=== PATIENT | female | born 1965 | race Caucasian/White ===

== ENCOUNTER 2020-12-11 12:52 | Observation (INO) | payer BC ==
[~2020-12-11] VITALS: Ht 172.7 cm; Wt 83.9 kg
[2020-12-11] VITALS (7 sets, daily range): BP systolic 107–130; BP diastolic 70–98
--- NOTE | 2020-12-11 13:01 | NUR ---
ARRIVAL PT ARRIVED TO ED WITH C/O EPISODE OF VOMITTING AND DIZZINESS AND RACING HEART SINCE. BEDSIDE MONITORS APPLIED. VITAL SIGNS STABLE. RT CALLED FOR EKG. BED IN LOW LOCKED POSITION.
--- NOTE | 2020-12-11 13:11 | ER.PDOC ---
General Chief Complaint: Requesting Medical Care Stated Complaint: NAUSEA, THROWING UP, DIZZINESS RISHI VIRK MD Dec 11, 2020 13:11
[2020-12-11] MEDS ORDERED: NS 1000ML 1,000 ML ONE (13:23)
[2020-12-11] MEDS ORDERED: CARDIZEM IV STA (13:24)
--- NOTE | 2020-12-11 13:24 | PCM.EKG ---
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
[2020-12-11] MEDS ORDERED: NS 1000ML 1,000 ML IV STA (13:27)
[2020-12-11] MEDS ORDERED: CARDIZEM IV ONE (13:28)
[2020-12-11] MEDS ORDERED: CARDIZEM 125 MG in NS 100ML 100 ML IV SCH (13:30)
[2020-12-11] MEDS ORDERED: ZOFRAN ONE (13:30)
[2020-12-11 13:32] LABS: BASOPHIL % 0.3 % (0.0-0.2); EOSINOPHIL # 0.1 10^3/uL (0.0-0.2); EOSINOPHIL % 1.3 % (0.0-5.0); LYMPHOCYTES # 1.72 10^3/uL1 (1.0-4.8); LYMPHOCYTES % 19.8 % (24.0-44.0); MEAN CORP HGB 29.4 pg (26-34); MONOCYTES # 0.4 10^3/uL (0.3-0.8); NEUTROPHIL # 6.5 10^3/uL (1.8-7.7); NEUTROPHILS % 74.1 % (41.0-85.0); PLATELET COUNT 334 10^3/uL (150-400); RED CELL DISTRIBUTION WIDTH 11.9 % (11.5-14.5)
[2020-12-11] MEDS ORDERED: ZOFRAN IV STA (13:33)
[2020-12-11 14:05] LABS: ALANINE AMINOTRANSFERASE(ML) 29 U/L (12-78); ALKALINE PHOSPHATASE 76 U/L (50-136); ASPARTATE AMINO TRANSFERASE 28 U/L (0-35); CARBON DIOXIDE 27.9 mmol/L (20.0-32); GLUCOSE 110 mg/dL (70-110)
--- NOTE | 2020-12-11 14:06 | DIREP ---
PROCEDURE:CHEST 1 VIEW COMPARISON:None. INDICATIONS:cp FINDINGS: LUNGS/PLEURA:Questionable left infrahilar infiltrate versus artifact of cardiac silhouette. No other consolidation or pleural effusion. VASCULATURE:Normal. Unremarkable pulmonary vasculature. CARDIAC:Normal. No cardiac silhouette abnormality or cardiomegaly. MEDIASTINUM:Normal. No visible mass or adenopathy. BONES:Normal. No fracture or visible bony lesion. OTHER:Negative. CONCLUSION:Questionable left infrahilar infiltrate versus artifact of cardiac silhouette. No other consolidation or pleural effusion. Dictated by: Navjot Hermosillo MD on 12/11/2020 at 02:03 PM
--- NOTE | 2020-12-11 14:25 | NUR ---
DR ASHWINI VIRK SPOKE WITH DR OLGUIN WHO ACCEPTED PT TO [facility] WITH TELE.
--- NOTE | 2020-12-11 17:20 | PCM.EKG ---
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
[2020-12-11] MEDS ORDERED: LOPRESSER IVP STA (17:54)
[2020-12-11] MEDS: TOPROL XL PO SCH (18:06)
--- NOTE | 2020-12-11 18:09 | PCM.HP ---
History of Present Illness Hx of Present Illness 55-year-old female with past medical history for hyperlipidemia otherwise healthy who presents to ER due to acute onset of dizziness, nausea, vomiting. Patient states that this morning patient started to feel not herself, started to notice some dizziness, chest pain, nausea, vomiting also noted some palpation of the heart. Patient had two episodes of nausea and vomiting. Was concerned that patient possibly had Covid so came to the ER for Covid testing. In the ER patient was found to have an EKG showing A. fib RVR. Patient was given diltiazem in the ER which helped rate control. However on exam patient's heart rate was starting to go back up into the 140 A. fib. Patient otherwise stable feeling fine. Noting no dizziness or chest pain at the time. Patient did note some urinary frequency and has a history of hyperlipidemia and UTIs but otherwise no other medical history. Past medical history: Hyperlipidemia, history of UTIs Surgical history: No surgical history Family history: No family history of heart disease Social: Patient denies tobacco, illicit drug use. Patient does say that she does drink a glass of wine or beer almost every other night. Allergies no known drug allergies. Review of Systems Constitutional: No: Fever, Chills, Sweats Respiratory: No: Cough, Dry, Shortness of breath Cardiovascular: Chest Pain, Palpitations Gastrointestinal: Nausea, Vomiting Genitourinary: No Dysuria; Frequency; No Hematuria Skin: No: Rash, Lesions, Jaundice Neurological: No: Weakness, Numbness Allergies: Coded Allergies: No Known Allergies (Unverified , 12/11/20) No Active Prescriptions or Reported Meds VTE VTE Risk Total Score: 0 VTE Risk Score VTE Risk: Score 0-1 = Low Risk (Aggressive mobilization; early ambulation; no VTE prophylaxis required) Score 2: Moderate Risk (Intermittent/Pneumatic Compression Device OR Lovenox/Heparin/Coumadin) Score 3-4: High Risk (Intermittent/Pneumatic Compression Device AND Lovenox/Heparin/Coumadin) Score > or =5: Highest Risk (Intermittent/Pneumatic Compression Device AND Lovenox/Heparin/Coumadin) VTE VTE Present on Admission: No Currently receiving anticoagul: No VTE Risk Total Score: 0 Exam Vital Signs Vital Signs Date Time Temp Pulse Resp B/P (MAP) Pulse Ox O2 Delivery O2 Flow Rate FiO2 12/11/20 15:53 72 Room Air 12/11/20 15:44 97.7 20 100 12/11/20 15:16 128/76 (93) General Appearance: Alert, Oriented X3, Cooperative, No acute distress HEENT: Atraumatic, PERRLA, EOMI Respiratory: Clear to auscultation Cardiovascular: Normal S1, Normal S2, Other (Tachycardia with irregular irregular rhythm) Abdominal: Normal bowel sounds, Soft, No tenderness Extremities: No clubbing, No cyanosis, No edema Skin: No rash, No breakdown, No lesions Neuro: Normal gait, Normal speech, Strength at 5/5 X4 ext, Normal tone Psych/Mental Status: Mental status NL, Mood NL Assessment/Plan Assessment/Plan Assessment/Plan 55-year-old female with past medical history for hyperlipidemia otherwise he althy who presents with acute onset A. fib with RVR. A. fib Ordered metoprolol 2.5 mg IV for acute rate control We will start patient on 50 mg p.o. metoprolol for chronic rate control A. fib Patient's Jas vas score is one with the only 1 point being female We will hold off on any anticoagulation will treat with aspirin at this time Consulted cardiology, appreciate their recommendations and evaluation Ordered echo follow-up with echo results TSH normal, ordered cholesterol panel Patient also has history of urinary frequency near frequent UTIs Ordered UA and urine culture will follow up Disposition: Patient has new onset A. fib RVR but is stable, will treat and monitor. Follow-up cardiology and their recommendations. If patient has normal echo and rate and rhythm controlled with p.o. meds will plan to discharge tomorrow. FRANKLYN VO MD Dec 11, 2020 18:09
[2020-12-11 20:14] LABS: BILIRUBIN,URINE NEGATIVE (NEGATIVE); UA COLOR YELLOW (YELLOW)
[2020-12-11 20:15] LABS: UROBILINOGEN,URINE NEGATIVE (NEGATIVE)
[2020-12-11 20:45] LABS: YEAST,URINE RARE
--- NOTE | 2020-12-11 21:29 | PCM.EKG ---
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
[2020-12-12 05:02] VITALS: BP 108/68
[2020-12-12 05:47] LABS: BASOPHIL % 0.5 % (0.0-0.2); EOSINOPHIL # 0.3 10^3/uL (0.0-0.2); EOSINOPHIL % 3.7 % (0.0-5.0); LYMPHOCYTES # 2.46 10^3/uL1 (1.0-4.8); LYMPHOCYTES % 32.6 % (24.0-44.0); MEAN CORP HGB 30.3 pg (26-34); MONOCYTES # 0.6 10^3/uL (0.3-0.8); NEUTROPHIL # 4.1 10^3/uL (1.8-7.7); NEUTROPHILS % 54.7 % (41.0-85.0); PLATELET COUNT 305 10^3/uL (150-400); RED CELL DISTRIBUTION WIDTH 12.2 % (11.5-14.5)
[2020-12-12 05:58] LABS: CALCIUM 8.7 mg/dL (8.4-10.5); CARBON DIOXIDE 25.4 mmol/L (20.0-32)
[2020-12-12 08:07] VITALS: BP 105/52
[2020-12-12] MEDS ORDERED: ASPIRIN ONE (08:40)
[2020-12-12] MEDS: TOPROL XL PO SCH (08:42)
[2020-12-12] MEDS ORDERED: ASPIRIN EC PO SCH (09:00)
[2020-12-12 11:46] VITALS: BP 106/61
--- NOTE | 2020-12-12 13:55 | NUR ---
POC UPDATE: CARDIOLOGY CONSULT WITH DR MERCHANT
--- NOTE | 2020-12-12 16:24 | PCM.ECHO ---
APPROVED REPORT EXAM: Comprehensive 2D, Doppler, and color-flow Echocardiogram. Patient Location: IN-PATIENT Rhythm: Atrial Fibrillation Indications Atrial Fibrillation Chest Pain New onset AFIB. 2D Dimensions LVOT Diameter 2.23 (1.8-2.4cm) LVEF(%) 55.13 (>50%) M-Mode Dimensions RVDd 1.35 (2.1-3.2cm) Left Atrium(MM) 3.55 (2.5-4.0cm) IVSd 0.75 (0.7-1.1cm) Aortic Root 2.75 (2.2-3.7cm) LVDd 4.65 (4.0-5.6cm) Aortic Cusp Exc 1.60 (1.5-2.0cm) PWd 0.70 (0.7-1.1cm) MV EPSS 0.96 (<0.5cm) IVSs 1.10 cm FS (%) 24.05 % LVDs 3.50 (2.0-3.8cm) ESV(Teich) 52.49 ml PWs 0.70 cm LVEF(%) 47.87 (>50%) Volumes Biplane 2D LV Volumes Biplane 2D LA Volumes LVEDv A4C 72.03 mL LA ESV Index LVESv A4C 32.32 mL Aortic Valve AoV Peak Jeff. 1.15 m/s AoV VTI 20.50 cm AO Peak GR. 5.35 mmHg AO Mean GR. 2.75 mmHg LVOT VTI 16.97 cm LVOT Peak Jeff. 0.82 m/s OZ(VTI)/BSA 3.24 cm2/m2 OZ (VTI) 3.24 cm2 Mitral Valve MV E Velocity 0.95m/s MR Peak Gr. 30.60mmHg Pulmonary Valve PV Peak Velocity 0.80m/s PV Peak Grad. 2.75mmHg RVOT VTI 15.11cm Tricuspid Valve TR P. Velocity 2.35m/s RAP ESTIMATE 10.00mmHg TR Peak Gr. 22.48mmHg RVSP 32.48mmHg LEFT VENTRICLE The left ventricle is normal size. The left ventricular systolic function is normal. The left ventricular ejection fraction is within the normal range. There is normal left ventricular wall thickness. There is normal LV segmental wall motion. There is no ventricular septal defect visualized. No left ventricle thrombus noted on this study. LVEF is 60-65%. RIGHT VENTRICLE The right ventricle is normal size. The right ventricular systolic function is normal. ATRIA The left atrium size is normal. The right atrium size is normal. AORTIC VALVE The aortic valve is normal in structure. There is no aortic valvular stenosis. Mild aortic regurgitation. There is no aortic valvular vegetation. MITRAL VALVE The mitral valve is normal in structure. There is no mitral valve stenosis. Mild mitral regurgitation. There is no evidence of mitral valve vegetations. TRICUSPID VALVE The tricuspid valve is normal in structure. There is no tricuspid valve stenosis. Moderate tricuspid regurgitation. There is no tricuspid valve vegetations. PULMONIC VALVE Pulmonic valve is not well visualized. There is no pulmonic valvular stenosis. There is no pulmonic valvular regurgitation. GREAT VESSELS The aortic root is normal in size. Pulmonary artery is not well visualized. Aortic arch is not well visualized. The IVC is normal in size and collapses >50% with inspiration. PERICARDIUM There is no pericardial effusion. There is no pleural effusion. Other Information Study Quality: Fair <Conclusion> The left ventricular systolic function is normal. LVEF is 60-65%. Mild mitral regurgitation. Moderate tricuspid regurgitation. Electronically signed by : LARRY MERCHANT. 12/12/2020 16:24:04
[2020-12-12 16:49] VITALS: BP 112/68
[2020-12-12 17:11] VITALS: BP 126/62
--- NOTE | 2020-12-12 17:14 | NUR ---
PIV REMOVED. CATHETER INTACT. DC HOME/SELF-CARE. ACCOMPANIED BY MOTHER.
--- NOTE | 2020-12-12 17:34 | NUR ---
DISCHARGE INSTRUCTIONS REVIEWED WITH OPPORTUNITY FOR QUESTIONS AND ANSWERS. PATIENT LEFT UNIT AMBULATORY.
--- NOTE | 2020-12-12 18:01 | PRM.DC ---
DC Summary Date of Discharge: Dec 12, 2020 Final Dx: Problems Medical Problems: (1) Atrial fibrillation Status: Acute ICD Codes: I48.91 - Unspecified atrial fibrillation SNOMED: [id number] Responsible Provider: ROMEO MONTERO RN-ER Problem Recorded: Dec 11, 2020 16:25 Last Edited By: ROMEO MONTERO RN-ER on Dec 11, 2020 16:25 HPI/Course 55-year-old female with past medical history for hyperlipidemia otherwise healthy who presents to ER due to acute onset of dizziness, nausea, vomiting. Patient states that this morning patient started to feel not herself, started to notice some dizziness, chest pain, nausea, vomiting also noted some palpation of the heart. Patient had two episodes of nausea and vomiting. Was concerned that patient possibly had Covid so came to the ER for Covid testing. In the ER patient was found to have an EKG showing A. fib RVR. Patient was given diltiazem in the ER which helped rate control. However on exam patient's heart rate was starting to go back up into the 140 A. fib. Patient otherwise stable feeling fine. Noting no dizziness or chest pain at the time. Patient did note some urinary frequency and has a history of hyperlipidemia and UTIs but otherwise no other medical history. Past medical history: Hyperlipidemia, history of UTIs Surgical history: No surgical history Family history: No family history of heart disease Social: Patient denies tobacco, illicit drug use. Patient does say that she does drink a glass of wine or beer almost every other night. Allergies no known drug allergies. Lab/Vinny/BBK/Rad Laboratory Tests Test 12/11/20 13:15 12/11/20 18:45 12/12/20 05:03 White Blood Count 8.7 10^3/uL 7.5 10^3/uL Red Blood Count 5.48 10^6/uL 4.82 10^6/uL Hemoglobin 16.1 g/dL 14.6 g/dL Hematocrit 49.2 % 43.2 % Mean Corpuscular Volume 89.8 fL 89.6 fL Mean Corpuscular Hemoglobin 29.4 pg 30.3 pg Mean Corpuscular Hemoglobin Concent 32.7 g/dL 33.8 g/dL Red Cell Distribution Width 11.9 % 12.2 % Platelet Count 334 10^3/uL 305 10^3/uL Mean Platelet Volume 11.6 fL 11.9 fL Neutrophils (%) (Auto) 74.1 % 54.7 % Lymphocytes (%) (Auto) 19.8 % 32.6 % Monocytes (%) (Auto) 4.0 % 8.0 % Neutrophils # (Auto) 6.5 10^3/uL 4.1 10^3/uL Lymphocytes # (Auto) 1.72 10^3/uL1 2.46 10^3/uL1 Monocytes # (Auto) 0.4 10^3/uL 0.6 10^3/uL Absolute Immature Granulocyte (auto 0.04 10^3 u/L 0.04 10^3 u/L Absolute Eosinophils (auto) 0.1 10^3/uL 0.3 10^3/uL Immature Granulocytes % 0.50 % 0.50 % Eosinophils % 1.3 % 3.7 % Basophils % 0.3 % 0.5 % Basophils # 0.0 10^3/uL 0.0 10^3/uL Prothrombin Time 10.7 SEC Prothrombin Time INR (Non-Therap) 1.1 Activated Partial Thromboplast Time 23.2 SEC D-Dimer 0.27 mg/L Sodium Level 144 mmol/L 142 mmol/L Potassium Level 4.4 mmol/L 3.8 mmol/L Chloride Level 108.0 mmol/L 109.0 mmol/L Carbon Dioxide Level 27.9 mmol/L 25.4 mmol/L Anion Gap 12.5 11.4 Blood Urea Nitrogen 11 mg/dL 12 mg/dL Creatinine 0.87 mg/dL 1.04 mg/dL Estimated GFR () 82.4 67.1 Est GFR (CKD-EPI)(Non-Afr Erit[place]an) 68.1 55.4 BUN/Creatinine Ratio 12.0 11.0 Glucose Level 110 mg/dL 98 mg/dL Calcium Level 9.0 mg/dL 8.7 mg/dL Total Bilirubin 0.4 mg/dL 0.5 mg/dL Aspartate Amino Transf (AST/SGOT) 28 U/L 27 U/L Alanine Aminotransferase (ALT/SGPT) 29 U/L 25 U/L Alkaline Phosphatase 76 U/L 59 U/L Total Creatine Kinase 205 U/L Troponin I < 0.02 ng/mL Pro-B-Type Natriuretic Peptide 92 pg/mL Total Protein 7.5 g/dL 6.3 g/dL Albumin 3.8 g/dL 3.1 g/dL Globulin 3.7 3.2 Albumin/Globulin Ratio 1.027 0.968 Triglycerides Level 353 mg/dL Cholesterol Level 331 mg/dL LDL Cholesterol, Calculated 209.4 VLDL Cholesterol, Calculated 70.6 HDL Cholesterol 51 mg/dL Cholesterol Ratio (LDL/HDL) 4.1 Cholesterol/HDL Ratio [id number] Thyroid Stimulating Hormone (TSH) 0.778 mIU/mL Free Thyroxine 0.99 ng/dL Thyroxine (T4) 9.6 ug/dL Free Triiodothyronine (T3) Index 2.95 pg/mL Urine Collection Type VOID Urine Color YELLOW Urine Appearance CLEAR Urine Bilirubin NEGATIVE MG/DL Urine Ketones NEGATIVE Urine Specific [place] 1.020 Urine pH 7.0 Urine Protein NEGATIVE Urine Urobilinogen NEGATIVE Urine Nitrate NEGATIVE Urine Leukocyte Esterase NEGATIVE Urine Blood TRACE Urine RBC 0-2 RBC/HPF Urine WBC NONE SEEN WBC/HPF Urine Squamous Epithelial Cells RARE #/HPF Urine Bacteria RARE Urine Yeast RARE Urine Glucose NORMAL Vitals/I&O VS - Last 72 Hours, by Label Date Time Temp Pulse Resp B/P (MAP) Pulse Ox O2 Delivery O2 Flow Rate FiO2 12/12/20 17:11 72 18 98 Room Air 12/12/20 16:49 98.0 65 20 96 Room Air 12/12/20 11:46 97.8 63 20 93 Room Air 12/12/20 08:42 82 129/68 12/12/20 08:12 Room Air 12/12/20 08:07 99.3 73 20 93 Room Air 12/12/20 05:02 98.1 63 18 95 Room Air 12/11/20 23:15 98.4 76 18 96 Room Air 12/11/20 20:07 Room Air 12/11/20 19:46 99.0 68 17 95 Room Air 12/11/20 18:26 86 12/11/20 18:06 142 128/76 12/11/20 18:04 142 128/76 12/11/20 18:00 142 12/11/20 15:53 72 Room Air 12/11/20 15:44 97.7 90 20 100 Room Air 12/11/20 15:16 97.7 90 20 128/76 (93) 100 Room Air 12/11/20 14:29 98.3 98 18 107/70 (82) 97 Room Air 12/11/20 13:46 98.3 86 18 107/76 (86) 97 Room Air 12/11/20 13:33 133 12/11/20 13:08 98.3 133 18 130/98 (109) 97 Room Air 12/11/20 13:08 98.3 133 18 97 12/11/20 13:08 98.3 133 18 No Active Prescriptions or Reported Meds Sepsis Reassessment @ DC 12/12/20 07:44 Condition/Impression Review of Systems Constitutional: No: Fever, Chills, Sweats Respiratory: No: Cough, Dry, Shortness of breath Cardiovascular: no Chest Pain, no Palpitations Gastrointestinal: no Nausea, no Vomiting Genitourinary: No Dysuria; Frequency; No Hematuria Skin: No: Rash, Lesions, Jaundice Neurological: No: Weakness, Numbness Exam General Appearance: Alert, Oriented X3, Cooperative, No acute distress HEENT: Atraumatic, PERRLA, EOMI Respiratory: Clear to auscultation Cardiovascular: Normal S1, Normal S2, ( regular rhythm) Abdominal: Normal bowel sounds, Soft, No tenderness Extremities: No clubbing, No cyanosis, No edema Skin: No rash, No breakdown, No lesions Neuro: Normal gait, Normal speech, Strength at 5/5 X4 ext, Normal tone Psych/Mental Status: Mental status NL, Mood NL Discharge Plan 55-year-old female with past medical history for hyperlipidemia otherwise healthy who presents with acute onset A. fib with RVR. A. fib Ordered metoprolol 2.5 mg IV for acute rate control We will start patient on 50 mg p.o. metoprolol for chronic rate control A. fib Patient's Jas vas score is one with the only 1 point being female We will hold off on any anticoagulation will treat with aspirin at this time Consulted cardiology, appreciate their recommendations and evaluation Ordered echo follow-up with echo results TSH normal Patient afib able to be controlled with metoprolol. Did well, no further events, discharged with metoprolol and aspirin. Follow up with PCP outpatient. Discharged home. Prescription/RX: Active Scripts Active No Active Prescriptions or Reported Medications FRANKLYN VO MD Dec 12, 2020 18:01
--- NOTE | 2020-12-12 20:45 | CNH ---
DATE OF CONSULTATION: 12/12/2020 REASON FOR CONSULTATION: New onset atrial fibrillation with rapid ventricular response. HISTORY OF PRESENT ILLNESS: This is a 55-year-old female who presented to the Emergency Room with symptoms of palpitations and shortness of breath as well as nausea and vomiting. She states that her symptoms started all of a sudden and became progressively worse. This prompted her to report to the Emergency Room. Upon presentation, EKG revealed atrial fibrillation with rapid ventricular response with a heart rate of 155 beats per minute. She denies any history of AFib. She was given Cardizem in the ED for rate control. She was subsequently admitted and a consultation was placed to Cardiology service for evaluation. PAST MEDICAL HISTORY: Significant for hyperlipidemia. PAST SURGICAL HISTORY: She denies any surgical history. ALLERGIES: She has no known drug allergies. MEDICATIONS: She does not take any medications at home. FAMILY HISTORY: She denies any family history of premature coronary artery disease or sudden cardiac . SOCIAL HISTORY: She denies tobacco use, denies illicit drug use, but however, admits to social alcohol use. REVIEW OF SYSTEMS: As per HPI and as per previous records. All systems reviewed and negative for interval change. PHYSICAL EXAMINATION: VITAL SIGNS: Blood pressure is 129/68, respiratory rate is 20, pulse is 82, and temperature 99.3. GENERAL: She is in no apparent distress, alert and oriented x 3. HEENT: Normocephalic, atraumatic. Extraocular muscles are intact. Pupils are equally round and reactive to light and accommodation. HEART: S1, S2 irregularly irregular with holosystolic murmur plus 2/6. LUNGS: Clear to auscultation bilaterally. No wheezing, rhonchi or rales. ABDOMEN: Soft, nontender, nondistended. Positive bowel sounds in all 4 quadrants. No hepatosplenomegaly. EXTREMITIES: No cyanosis, no clubbing, no edema, +2 pedal pulses palpable bilaterally. NEUROLOGIC: No neurological deficits. Sensation is intact. IMPRESSION: 1. New onset atrial fibrillation with rapid ventricular response. 2. CHADS2-VASc score of 0. 3. Hyperlipidemia. RECOMMENDATIONS: This is a 55-year-old female who presented to the Emergency Room with symptoms of palpitations and shortness of breath with nausea and vomiting. She was noted to be in atrial fibrillation with rapid ventricular response, which is of new onset. Her heart rate is currently controlled with Toprol-XL 50 mg p.o. daily. She has a CHADS2-VASc score of 0. In view of these, aspirin 81 mg p.o. daily, is recommended for anticoagulation. A 2D echo done this admission shows a left ventricular ejection fraction of 60-65% with moderate tricuspid regurgitation. Thyroid panel was normal. Troponin was also negative x 1. There is no evidence of wall motion abnormalities on 2D echo. She is noted to have significantly elevated cholesterol levels with a total cholesterol of 331 and an LDL cholesterol of 209. I am going to start her on Lipitor 40 mg p.o. at bedtime. Her heart rate appears to be stabilized on Toprol-XL 50 mg p.o. daily. She can be discharged home today to follow up with me in the office in 2-3 weeks. She certainly would benefit from a cardiac stress test to rule out an ischemic substrate. This will be pursued in the outpatient setting. LARRY MERCHANT D.O. : TULIO/kp JOB# [id number]
[2020-12-12] MEDS ORDERED: LIPITOR PO SCH (21:00)
== END 2020-12-12 17:34 | disposition home or self-care (01) ==
LOC: ER 14:28 → MS 14:31 → EDBEDREQ 16:28
PROVIDERS: ADMIT Family Medicine; ATTEND Family Medicine
DX: I48.20 Chronic atrial fibrillation, unspecified (principal); E78.5 Hyperlipidemia, unspecified; Z87.440 Personal history of urinary (tract) infections; Z79.899 Other long term (current) drug therapy
CPT/HCPCS: 36415 ×2; 71045; 80053 ×2; 80061; 81000; 82550; 83880; 84439; 84443; 84484; 85025 ×2; 85379; 85610; 85730; 87086; 93005 ×3; 93306; 96361; 96374; 96375; 99285; G0378 ×26; J2405; J3490 ×2; J7030; 84436